=== PATIENT | male | born 1945 | race Caucasian/White ===

== ENCOUNTER 2020-10-08 05:50 | Day surgery (SDC) | payer OTHER ==
[~2020-10-08 05:50] MED LIST: ACETAMINOOPHEN-1 TAB PO; AMBIEN10 MG PO; CARBIDOPA-LEVO1 EAC1 PO; CELEBREX100 MG PO; CLONAZEPAM1 MG PO; COLACE100 MG PO; Colace 100MG PO; DOCUSATE SODIU100 MG PO; LIPITOR40 M1 PO; LIPITOR40 MG PO; NEURONTIN PO; PERCOCET 5/3251 TAB PO; PREDNISONE5 MG/DOSE- PO; SKELAXIN800 MG PO; TRAMADOL HCL-AP1 TAB PO
[2020-10-08] MEDS ORDERED: NEURONTIN600 M1 PO (11:32)
[2020-10-08] MEDS ORDERED: COLACE100 MG PO (11:32)
[2020-10-08] MEDS ORDERED: PERCOCET 5-3251 EACH PO (11:32)
== END 2020-10-08 13:00 | disposition home or self-care (01) ==
LOC: CIR.AMB 05:50
PROVIDERS: ATTEND Surgery
DX: K40.31 Unilateral inguinal hernia, with obstruction, without gangrene, recurrent (principal); Z20.822 Contact with and (suspected) exposure to COVID-19

== ENCOUNTER 2025-03-21 05:03 | Inpatient (IN) | payer OTHER ==
[~2025-03-21] VITALS: Ht 188 cm; Wt 83.9 kg
[~2025-03-21 05:03] MED LIST changes: +NEURONTIN600 M1 PO; +PERCOCET 5-3251 EACH PO
[2025-03-21] MEDS ORDERED: COBENFY PO (05:15)
[2025-03-21] MEDS ORDERED: SERTRALINE20 MG/1 ML PO (05:15)
[2025-03-21] MEDS ORDERED: PRAMIPEXOLE D0.25 MG PO (05:16)
[2025-03-21] MEDS ORDERED: AMBIEN10 MG PO (05:16)
[2025-03-21] MEDS ORDERED: RIVASTIGMINE1.5 MG PO (05:16)
--- NOTE | 2025-03-21 05:17 | NUR ---
SE RECIBE AMBULANCIA COMPANIA DE AMBULANCIA [facility] QUIENES REFIEREN TRAER A PACIENTE A CAUSA DE QUE GONZALEZ PRESENTADO VOMITOS COLOR OSCURO EN LA MADRUGADA DE ROSALINE.
[2025-03-21] MEDS ORDERED: ONDANSETRON HCL 2 MG/ML VIAL IV STA (05:49)
[2025-03-21] MEDS ORDERED: FAMOTIDINE/PF 20 MG/2 ML VIAL IV PUSH STA (05:49)
[2025-03-21] MEDS ORDERED: 0.9 % SODIUM CHLORIDE 1,000 ML IV ONE (06:00)
--- NOTE | 2025-03-21 06:17 | NUR ---
SE ORIENTA A PACIENTE SOBRE TRATAMIENTO MEDICO, REFIERE ENTENDER. SE REALIZAN MUESTRAS DE LABORATORIOS BAJO MEDIDAS ASEPTICAS. SE ADMINISTRA IV'S MAEVE ORDEN MEDICA. PACIENTE MANEJADO POR Y .
--- NOTE | 2025-03-21 07:18 | NUR ---
PTE ALERTA Y ACTIVO EN NICOLAS EN POSICION SEMI SENTADA. PTE CANALIZADA EN BRAZO DERECHO AREA TERENCE DE EDEMA Y ENROJECIMIENTO. PTE RECIBIENDO INFUSION DE 0.9NSS 100 ML/HR. PTE CON TUBO NASOGASTRICO EN ORIFICIO IZQ CON SUCCION INTERMITENTE. PTE EN ESPERA DE RERSULTADOS DE LABORATORIOS Y PENDIENTE A REALIZAR CHEST PORTABLE. SE LE NOTIFICA A SECRETARIA SALAZAR QUIEN REFIERE ENTENDER. AL MOMENTO PTE CON RESTRICCION EN AMBAS EXTREMIDADES SUPERIORES. SE MANTIENE BAJO OBSERVACION.
[2025-03-21 08:30] LABS: INR 1.01
[2025-03-21 08:32] LABS: BASO % 0.4 % (0.1-1.2); EOS # 0.00 (0.04-0.54); EOS % 0.0 % (0.7-7.0); LYMPH # 0.84 (1.18-3.74); LYMPH % 10.5 % (19.3-53.1); MEAN PLATELET VOLUME 9.50 fl (9.4-12.4); MONO # 0.26 (0.24-0.82); MONO % 3.2 % (4.7-12.5); NEUT # 6.88 (1.56-6.13); NEUT % 85.8 % (34.0-71.1); RED CELL DISTRIBUTION WIDTH 12.6 % (11.6-14.4)
[2025-03-21 08:48] LABS: ALT/SGPT 19.0 U/L (12-78); AST/SGOT 21.0 U/L (15-37); BILIRUBIN TOTAL 0.81 mg/dL (0.3-1.2); BUN CREA RATIO 29.0 (7.0-25.0); CREATININE SERUM 0.89 mg/dL (0.70-1.30); GFR 82.04; GLOBULINA 3.5 G/DL (2.4-3.5); GLUCOSE FASTING 129.0 mg/dL (65-100); OSMOLALITY SERUM 288.0 MOSM/KG (275-295)
[2025-03-21] MEDS ORDERED: CIPROFLOXACIN IN 5 % DEXTROSE 200 ML IV SCH (16:38)
[2025-03-21] MEDS ORDERED: 0.9 % SODIUM CHLORIDE 1,000 ML IV SCH (17:00)
[2025-03-21] MEDS ORDERED: PANTOPRAZOLE SODIUM 40 MG/VIAL VIAL IV SCH (17:00)
[2025-03-21] MEDS ORDERED: LEVALBUTEROL HCL 1.25 MG/3 ML SOLUTION IH SCH (18:00)
[2025-03-21] MEDS ORDERED: PIPERACILLIN/TAZOBACTAM SODIUM 3.375 GM in DEXTROSE 5 % IN WATER 100 ML IV SCH (18:00)
[2025-03-21 22:14] VITALS: BP 102/65; O2SAT 94
[2025-03-21 22:56] VITALS: BP 108/68; O2SAT 93
[2025-03-22] VITALS: BP 114/59; O2SAT 97
[2025-03-22 06:50] LABS: BASO % 0.5 % (0.1-1.2); EOS # 0.04 (0.04-0.54); EOS % 0.4 % (0.7-7.0); LYMPH # 1.07 (1.18-3.74); LYMPH % 10.6 % (19.3-53.1); MEAN PLATELET VOLUME 9.70 fl (9.4-12.4); MONO # 0.83 (0.24-0.82); MONO % 8.2 % (4.7-12.5); NEUT # 8.08 (1.56-6.13); NEUT % 80.0 % (34.0-71.1); RED CELL DISTRIBUTION WIDTH 13.2 % (11.6-14.4)
[2025-03-22 07:21] LABS: INR 1.11
[2025-03-22 07:27] LABS: BUN CREA RATIO 42.0 (7.0-25.0); CREATININE SERUM 1.3 mg/dL (0.70-1.30); GFR 52.98; GLUCOSE FASTING 107.0 mg/dL (65-100); OSMOLALITY SERUM 302.0 MOSM/KG (275-295)
[2025-03-22 08:00] VITALS: BP 118/71; O2SAT 98
[2025-03-22] MEDS ORDERED: METOCLOPRAMIDE HCL 5 MG/ML VIAL IV SCH (13:00)
[2025-03-22] MEDS ORDERED: hydrALAZINE HCL 20 MG VIAL IV PRN (14:45)
[2025-03-22 16:30] VITALS: BP 117/56; O2SAT 96
[2025-03-22] MEDS ORDERED: POLYETHYLENE GLYCOL 3350 17 GM BLIST.PACK PO SCH (17:00)
[2025-03-23 00:50] VITALS: BP 132/73; O2SAT 95
[2025-03-23 06:52] LABS: BUN CREA RATIO 43.0 (7.0-25.0); CREATININE SERUM 0.88 mg/dL (0.70-1.30); GFR 83.11; GLUCOSE FASTING 84.0 mg/dL (65-100); OSMOLALITY SERUM 299.0 MOSM/KG (275-295)
[2025-03-23 08:00] VITALS: BP 121/67; O2SAT 96
[2025-03-23] MEDS ORDERED: POTASSIUM PHOS,M-BASIC-D-BASIC 3 MM/ML VIAL IV ONE (11:00)
[2025-03-23 16:55] VITALS: BP 117/65; O2SAT 95
[2025-03-23] MEDS ORDERED: SERTRALINE HCL 25 MG TABLET PO SCH (17:00)
[2025-03-23] MEDS ORDERED: CARBIDOPA/LEVODOPA 25/100 UDTAB PO SCH (17:00)
[2025-03-23] MEDS ORDERED: PATIENTS OWN MEDICATION (MEDICAMENTO EN PISO) PO SCH (17:00)
[2025-03-23] MEDS ORDERED: CARBIDOPA/LEVODOPA 50/200 CR TABLET.SA PO SCH (21:00)
[2025-03-24 01:18] VITALS: BP 142/79; O2SAT 100
[2025-03-24 08:00] VITALS: BP 147/78; O2SAT 98
[2025-03-24] MEDS ORDERED: METOCLOPRAMIDE HCL 10 MG TABLET PO SCH (13:00)
[2025-03-24 16:54] VITALS: BP 166/72; O2SAT 97
[2025-03-24] MEDS ORDERED: MEGESTROL ACETATE 400 MG/10 ML BLIST PACK PO SCH (17:00)
[2025-03-25 00:30] VITALS: BP 175/88; O2SAT 95
[2025-03-25 08:00] VITALS: BP 190/92; O2SAT 95
[2025-03-25] MEDS ORDERED: SODIUM CHLORIDE 0.45 % 1,000 ML IV SCH (18:15)
[2025-03-25 18:20] VITALS: BP 133/72; O2SAT 97
[2025-03-25] MEDS ORDERED: LORazepam 2 MG/ML VIAL IV SCH (21:00)
[2025-03-26] VITALS: BP 135/65; O2SAT 95
[2025-03-26 08:35] VITALS: BP 136/6; O2SAT 96
[2025-03-26] MEDS ORDERED: CARBIDOPA-LEVO1 EA12 PO (11:12)
[2025-03-26] MEDS ORDERED: SERTRALINE HCL25 MG PO (11:12)
[2025-03-26] MEDS ORDERED: CARBIDOPA-LEVO1 EA10 PO (11:12)
[2025-03-26] MEDS ORDERED: PROTEINEX-18 LI30 ML PO (11:13)
[2025-03-26] MEDS ORDERED: CLONAZEPAM0.5 MG PO (11:16)
[2025-03-26] MEDS ORDERED: RISPERDAL0.5 MG PO (11:16)
[2025-03-26 12:15] LABS: COVID-19 AG NEGATIVE (NEGATIVE)
[2025-03-26] MEDS ORDERED: AMINO ACIDS/PROTEIN HYDROLYS 30 ML BLIST.PACK PO SCH (17:00)
[2025-03-26 17:14] VITALS: BP 135/70; O2SAT 95
== END 2025-03-26 07:31 | DRG 389 ==
LOC: ER 05:03 → SURH 21:32
PROVIDERS: General Practice; Internal Medicine; ADMIT Internal Medicine; ATTEND Internal Medicine
PROC: BW21YZZ Computerized Tomography (CT Scan) of Abdomen and Pelvis using Other Contrast (ICD-10-PCS; principal; 2025-03-21)
DX: K56.609 Unspecified intestinal obstruction, unspecified as to partial versus complete obstruction (principal); N17.9 Acute kidney failure, unspecified; G20.A1 Parkinson's disease without dyskinesia, without mention of fluctuations; G72.9 Myopathy, unspecified